=== PATIENT | male | born 1950 | race Caucasian/White ===

== ENCOUNTER → 2017-02-12 | Outpatient (CLI) | payer MEDICARE, BC ==
--- NOTE | 2017-02-12 15:06 | RAD ---
Foot x-rays Indication: 66-year-old male with left foot pain, nodule and the bottom of the foot for years, base of second digit. Technique: 3 views of the left foot Comparison: None Findings: Hallux valgus deformity noted. No acute fracture or dislocation. Well-corticated bony fragment inferior to the lateral malleolus may represent unfused ossicle. Mild midfoot osteoarthritis. Small plantar calcaneal spur. Vascular calcifications suggesting peripheral vascular disease. Impression: No acute fractures. Hallux valgus deformity.
== END | disposition home or self-care (01) ==
LOC: DXRADRC 11:40
PROVIDERS: ATTEND General Practice
DX: M19.072 Primary osteoarthritis, left ankle and foot (principal); M20.12 Hallux valgus (acquired), left foot; M77.32 Calcaneal spur, left foot; M25.872 Other specified joint disorders, left ankle and foot
CPT/HCPCS: 73630